=== PATIENT | male | born 1985 | race Caucasian/White ===

== ENCOUNTER 2024-01-27 10:44 | Emergency (ER) | payer OTHER, SELFPAY ==
--- NOTE | ~2024-01-27 | XR_ITS ---
EXAMINATION: XR HAND, LEFT CLINICAL INFORMATION: Left thumb injury and pain COMPARISON: None available. TECHNIQUE: PA, lateral, and oblique views of the left hand. FINDINGS: BONES: Bony structures are intact. There is no focal bone destruction or periosteal reaction seen. JOINTS: Alignment of joints is normal. SOFT TISSUE: Soft tissue is normal. No radiopaque foreign body or abnormal air collection is seen. XR/XR hand LT min 3V IMPRESSION: 1. Normal x-rays of left hand. No fracture or dislocation or signs of osteomyelitis are found.
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
[2024-01-27 10:57] VITALS: BP 129/94; BP 156/88; PULSE 70; PULSE 72; RESP 18; TEMP 36.5; O2SAT 98; BMI 25.8
[2024-01-27 11:07] VITALS: BP 124/82; PULSE 73; RESP 20; TEMP 36.9; O2SAT 98
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
[2024-01-27 14:46] VITALS: BP 134/88; PULSE 83; RESP 12; TEMP 36.6; O2SAT 100
[2024-01-27 16:21] VITALS: BP 122/74; PULSE 87; RESP 17; TEMP 36.7; O2SAT 99
== END 2024-01-27 20:04 ==
PROVIDERS: Emergency Provider Emergency Medicine
DX: S69.92XA Unspecified injury of left wrist, hand and finger(s), initial encounter (principal); S06.0X0A Concussion without loss of consciousness, initial encounter; M54.2 Cervicalgia; R51.9 Headache, unspecified; Y04.2XXA Assault by strike against or bumped into by another person, initial encounter; Y93.9 Activity, unspecified; Y92.099 Unspecified place in other non-institutional residence as the place of occurrence of the external cause; Y99.8 Other external cause status
CPT/HCPCS: 70450; 72125; 73130; 99284